=== PATIENT | female | born 1960 | race Hispanic/Latino ===

== ENCOUNTER 2018-12-21 18:16 | Emergency (ER) | payer BC ==
[2018-12-21] MEDS ORDERED: BOOSTRIX IM ONE ×2 (18:24→22:42)
--- NOTE | 2018-12-21 18:26 | Emergency Department Report ---
Chief Complaint: Extremity Injury, Lower Stated Complaint: RT FOOT INJURY Time Seen by Provider: 12/21/18 18:23 - HPI History of Present Illness: This is a 58 y.o. F. that presents to the ER with laceration and pain to right foot between 4th and 5th toes. Patient states a sledge hammer fell on her foot. Tetanus not UTD. - Exam Vital Signs: Vital Signs 12/21/18 18:22 Temperature 98.0 F Pulse Rate 76 Respiratory 16 Rate Blood Pressure 134/64 O2 Sat by Pulse 98 Oximetry MSE screening note: Focused history and physical exam performed. Due to findings the following was ordered: This initial assessment/diagnostic orders/clinical plan/treatment(s) is/are subject to change based on patient's health status, clinical progression and re- assessment by fellow clinical providers in the ED. Further treatment and workup at subsequent clinical providers discretion. Patient/guardians urged not to elope from the ED as their condition may be serious if not clinically assessed and managed. Initial orders include: XR Right foot Tetanus vaccine ED Disposition for MSE Condition: Stable
--- NOTE | 2018-12-21 20:03 | XRay Report ---
PROCEDURE: XR FOOT 3+V RT TECHNIQUE: Right foot radiographs, AP, lateral, and oblique views. HISTORY: laceration and swelling between 4th 5th toes COMPARISONS: None . FINDINGS: There is laceration noted of the fifth toe and between the fourth and fifth toes. There are comminute d fractures involving the fifth middle and distal phalanges and likely the distal aspect of the fifth proximal phalanx. No radiopaque foreign body is seen. IMPRESSION: Soft tissue injury of the fifth toe. There are comminuted fractures involving the fifth middle and distal phalanges and likely the distal aspect of the fifth proximal phalanx. This document is electronically signed by Margo Carrizales MD., December 21 2018 08:01:38 PM ET
[2018-12-21] MEDS ORDERED: ANCEF IM ONE (21:50)
[2018-12-21] MEDS ORDERED: IBUPROFEN PO ONE (21:51)
[2018-12-21] MEDS ORDERED: TYLENOL PO ONE (21:51)
[2018-12-21] MEDS ORDERED: XYLOCAINE 1% MPF 5 mL INFILTRATI ONE (21:51)
--- NOTE | 2018-12-21 22:52 | Emergency Department Report ---
ED Lower Extremity HPI - General Chief Complaint: Extremity Injury, Lower Stated Complaint: RT FOOT INJURY Time Seen by Provider: 12/21/18 18:23 Source: patient Mode of arrival: Ambulatory Limitations: No Limitations - History of Present Illness Initial Comments: Patient is a 58-year-old white female with no past medical history who presents to the ED with complaint of acute onset persistent pain on the right foot especially on the dorsal right small toe with bleeding laceration after a sled hammer accidentally dropped onto her right foot about 2 hours ago. Patient states that she is unable to bear weight on the right foot because of severe pain due to the bleeding laceration. The patient denies dizziness, nausea, vomiting, numbness and tingling or weakness of her right foot. Patient states that she is not up-to-date with her tetanus vaccinations. MD Complaint: foot injury (right foot pain, bleeding laceration, right small toe pain) -: Sudden, hour(s) (2) Injury: Foot: Right (dorsal right foot), Toes: Right (Dorsal right 5th toe) Type of Injury: blunt, laceration Place: home Severity: severe Severity scale (0 -10): 8 Improves With: nothing Worsens With: weight bearing, movement, palpation Context: direct blow, other (sledge hammer dropped onto her right foot) Associated Symptoms: able to partially bear weight. denies: snap/pop sensation, swelling, numbness, tingling, unable to bear weight - Related Data Previous Rx's Medication Instructions Recorded Last Taken Type Cyclobenzaprine [Flexeril] 10 mg PO Q8H PRN #15 tablet 12/21/18 Unknown Rx HYDROcodone/APAP 5-325 [Nicolaus 1 each PO Q6HR PRN #12 tablet 12/21/18 Unknown Rx 5/325] Ibuprofen [Motrin] 800 mg PO Q8HR PRN #20 tablet 12/21/18 Unknown Rx cephALEXin [Keflex] 500 mg PO Q8HR #30 cap 12/21/18 Unknown Rx Allergies Allergy/AdvReac Type Severity Reaction Status Date / Time No Known Allergies Allergy Unverified 12/21/18 18:18 ED Review of Systems ROS: Stated complaint: RT FOOT INJURY Other details as noted in HPI Comment: All other systems reviewed and negative Constitutional: no symptoms reported, see HPI. denies: diaphoresis Eyes: as per HPI. denies: eye pain, eye discharge, vision change ENT: as per HPI. denies: ear pain, throat pain, dental pain, hearing loss Respiratory: no symptoms reported, see HPI. denies: cough, shortness of breath, SOB with exertion, SOB at rest Cardiovascular: as per HPI. denies: chest pain, palpitations, dyspnea on exertion, edema, syncope, paroxysmal nocturnal dyspnea Endocrine: no symptoms reported, see HPI. denies: excessive sweating, flushing, intolerance to cold, increased hunger, increased thirst, unexplained weight gain Gastrointestinal: as per HPI. denies: abdominal pain, nausea, vomiting, diarrhea, constipation, hematemesis Genitourinary: as per HPI. denies: urgency, frequency Musculoskeletal: as per HPI, arthralgia, other (dorsal right foot pain, bleeding laceration). denies: back pain, joint swelling Skin: as per HPI, other (Bleeding laceration of right 5th toe ). denies: rash, lesions, change in color, change in hair/nails Neurological: as per HPI. denies: headache, weakness, numbness, paresthesias, confusion, abnormal gait, vertigo Psychiatric: as per HPI Hematological/Lymphatic: as per HPI ED Past Medical Hx - Past Medical History Previous Medical History?: No - Surgical History Additional Surgical History: carpal tunnel, tubal ligation - Social History Smoking Status: Current Every Day Smoker Substance Use Type: Alcohol - Medications Home Medications: Home Medications Medication Instructions Recorded Confirmed Last Taken Type Cyclobenzaprine [Flexeril] 10 mg PO Q8H PRN #15 tablet 12/21/18 Unknown Rx HYDROcodone/APAP 5-325 [Nicolaus 1 each PO Q6HR PRN #12 tablet 12/21/18 Unknown Rx 5/325] Ibuprofen [Motrin] 800 mg PO Q8HR PRN #20 tablet 12/21/18 Unknown Rx cephALEXin [Keflex] 500 mg PO Q8HR #30 cap 12/21/18 Unknown Rx ED Physical Exam - General Limitations: No Limitations General appearance: alert, in no apparent distress - Head Head exam: Present: atraumatic, normocephalic, normal inspection - Eye Eye exam: Present: normal appearance, PERRL, EOMI. Absent: scleral icterus, conjunctival injection, nystagmus, periorbital swelling, periorbital tenderness Pupils: Present: normal accommodation - ENT ENT exam: Present: normal exam, normal orophraynx, mucous membranes moist, TM's normal bilaterally, normal external ear exam - Neck Neck exam: Present: normal inspection, full ROM - Respiratory Respiratory exam: Present: normal lung sounds bilaterally. Absent: respiratory distress, wheezes, rales, rhonchi, chest wall tenderness, decreased breath sounds, prolonged expiratory - Cardiovascular Cardiovascular Exam: Present: regular rate, normal rhythm, normal heart sounds - GI/Abdominal GI/Abdominal exam: Present: soft, normal bowel sounds. Absent: distended, tenderness, guarding, rebound, hyperactive bowel sounds, hypoactive bowel sounds, organomegaly - Rectal Rectal exam: Present: deferred - Extremities Exam Extremities exam: Present: tenderness (dorsal right foot, right 5th toe with bleeding 3 cm laceration), normal capillary refill. Absent: full ROM (due to pain) - Back Exam Back exam: Present: normal inspection, full ROM. Absent: tenderness, CVA tend erness (R), CVA tenderness (L), muscle spasm, paraspinal tenderness - Neurological Exam Neurological exam: Present: alert, oriented X3, CN II-XII intact, normal gait, reflexes normal - Psychiatric Psychiatric exam: Present: normal affect - Skin Skin exam: Present: warm, dry, intact, other (Bleeding 3 cm laceration of dorsal right 5th toe) ED Course Vital Signs 12/21/18 18:22 Temperature 98.0 F Pulse Rate 76 Respiratory 16 Rate Blood Pressure 134/64 O2 Sat by Pulse 98 Oximetry - Reevaluation(s) Reevaluation #1: 12/21/18 23:10 Patient is alert and oriented 3 and is not in any distress but in pain. Patient was treated for pain in the ED and left foot x-ray shows comminuted fractures involving the middle and distal phalanges, and likely distal aspect of the fifth proximal phalanx. There is also laceration between the fourth and fifth toes. Patient was treated in the ED also with tetanus vaccination. The laceration between the fifth and the fourth toes was sutured and patient tolerated the procedure well after the wound was cleaned thoroughly. Patient also received Ancef 1 g intramuscular injection. The resident was splinted in Shlomo wrap and the toes were dressed appropriately. Patient was also fitted with postop shoes. Patient was discharged home on pain medications and antibiotics, and advised to follow-up with her orthopedic surgeon when she goes to her dentist initially in [place] immediately established a follow-up fractured fifth toe. Patient promised to contact her orthopedic surgeon first thing in the morning to schedule an appointment. - Laceration /Wound Repair Right Dorsal Toe Wound Location: lower extremity (right 5th toe) Wound Length (cm): 3 Wound's Depth, Shape: superficial Wound Explored: contaminated Irrigated w/ Saline (ccs): 20 Betadine Prep?: Yes Anesthesia: 1% Lidocaine Volume Anesthetic (ccs): 5 Wound Debrided: extensive Wound Repaired With: sutures Suture Size/Type: 3:0, proline Number of Sutures: 6 Layer Closure?: No Sterile Dressing Applied?: Yes Progress: Patient tolerated procedure well. Patient's wound dressed and patient discharged home on pain medications and antibiotics. ED Lower Extremity MDM - Radiology Data Radiology results: report reviewed, image reviewed There is comminuted fractures involving the fifth middle and distal phalanges and likely distal aspect of the fifth proximal phalanx. - Medical Decision Making Patient is alert and oriented 3 and is not in any distress but in pain. Anitha montanez was treated for pain in the ED and left foot x-ray shows comminuted fractures involving the middle and distal phalanges, and likely distal aspect of the fifth proximal phalanx. There is also laceration between the fourth and fifth toes. Patient was treated in the ED also with tetanus vaccination. The laceration between the fifth and the fourth toes was sutured and patient tolerated the procedure well after the wound was cleaned thoroughly. Patient also received Ancef 1 g intramuscular injection. The resident was splinted in Shlomo wrap and the toes were dressed appropriately. Patient was also fitted with postop shoes. Patient was discharged home on pain medications and antibiotics, and advised to follow-up with her orthopedic surgeon when she goes to her dentist initially in [place] immediately established a follow-up fractured fifth toe. Patient promised to contact her orthopedic surgeon first thing in the morning to schedule an appointment. - Differential Diagnosis right foot contusion; fractured 5th toe; laceration of right 5th toe Critical care attestation.: If time is entered above; I have spent that time in minutes in the direct care of this critically ill patient, excluding procedure time. ED Disposition Clinical Impression: Laceration of fifth toe of right foot Qualifiers: Encounter type: initial encounter Qualified Code(s): S91.114A - Laceration without foreign body of right lesser toe(s) without damage to nail, initial encounter Closed fracture of phalanx of right fifth toe Qualifiers: Encounter type: initial encounter Qualified Code(s): S92.501A - Displaced unspecified fracture of right lesser toe(s), initial encounter for closed fracture Contusion of right foot including toes Qualifiers: Encounter type: initial encounter Qualified Code(s): S90.31XA - Contusion of right foot, initial encounter; S90.121A - Contusion of right lesser toe(s) without damage to nail, initial encounter Disposition: TO HOME OR SELFCARE Is pt being admited?: No Does the pt Need Aspirin: No Condition: Stable Instructions: Toe Fracture (ED), Foot Contusion (ED), Laceration (ED) Additional Instructions: Take medications with food, drink plenty of fluids and follow up with your primary care physician in 7-10 days for reevaluation. Follow up immediately upon arrival at her destination with the orthopedic surgeon. Contact the orthopedic surgeon to schedule an appointment immediately. Otherwise have the sutures removed in 14 days at your primary care physician's office or at the knee orthopedic surgeon's office. Prescriptions: Cyclobenzaprine [Flexeril] 10 mg PO Q8H PRN #15 tablet PRN Reason: Spasms cephALEXin [Keflex] 500 mg PO Q8HR #30 cap Ibuprofen [Motrin] 800 mg PO Q8HR PRN #20 tablet PRN Reason: Pain , Severe (7-10) HYDROcodone/APAP 5-325 [Nicolaus 5/325] 1 each PO Q6HR PRN #12 tablet PRN Reason: Pain Referrals: SOL PETER MD [Staff Physician] - 3-5 Days Time of Disposition: 23:18 Print Language: MOSOT[place]
[2018-12-21] MEDS ORDERED: NORCO 5/325 PO ONE (23:21)
[2018-12-21] MEDS ORDERED: ZOFRAN ODT PO ONE (23:21)
[2018-12-21 23:35] VITALS: BP 121/61
== END 2018-12-21 23:34 | disposition home or self-care (01) ==
LOC: ED 18:16
DX: S91.114A Laceration without foreign body of right lesser toe(s) without damage to nail, initial encounter (principal); S92.501A Displaced unspecified fracture of right lesser toe(s), initial encounter for closed fracture; S90.31XA Contusion of right foot, initial encounter; S90.121A Contusion of right lesser toe(s) without damage to nail, initial encounter; F17.200 Nicotine dependence, unspecified, uncomplicated; W20.8XXA Other cause of strike by thrown, projected or falling object, initial encounter; Y93.89 Activity, other specified; Y92.89 Other specified places as the place of occurrence of the external cause; Y99.8 Other external cause status
CPT/HCPCS: 12042; 73630; 90471; 90715; 96372; 99283; J0690